=== PATIENT | female | born 1970 | race Caucasian/White ===

== ENCOUNTER 2021-06-09 15:42 | Emergency (ER) | payer OTHER, SELFPAY ==
[2021-06-09 15:53] VITALS: BP 153/84; PULSE 100; RESP 18; TEMP 37.4; O2SAT 97
--- NOTE | 2021-06-09 16:25 | ED.SKABFB ---
HPI - Skin/Abscess/Foreign Bdy General Chief complaint: Skin/Abscess/Foreign Body Stated complaint: Facial Swelling Source: patient and RN notes reviewed Mode of arrival: ambulatory History of Present Illness HPI narrative: 51 y/o female left face swelling worsening x3 days, went to hospital yesterday, stating facial swelling was not as bad. she was dc with ibuprofen with dx lymphadenopathy. Denies vision changes, ear pain, sore throat, neck pain fever/chills. States she is not in pain, just has facial swelling and the cheek feels tight. Related Data Home Medications Medication Instructions Recorded Confirmed celecoxib 200 mg PO BID 06/09/21 06/09/21 fluoxetine 20 mg PO DAILY 06/09/21 06/09/21 hydrocodone-acetaminophen 7.5 - 325 tablet PO PRN PRN 06/09/21 06/09/21 Allergies Allergy/AdvReac Type Severity Reaction Status Date / Time Penicillins AdvReac Unknown Nausea Verified 06/09/21 16:09 codeine AdvReac Nausea Verified 06/09/21 16:09 Review of Systems Review of Systems: All systems reviewed & are unremarkable except as noted in HPI and below [facility] Family History Family History (Updated 11/15/11 @ 10:23 by DOCTOR UNKNOWN) Other Diabetes mellitus Hypertension Social History Social History Alcohol intake: current Exam Narrative: GENERAL: Ill-appearing no acute distress. HEAD: Normocephalic, atraumatic. EYES: EOMI. No redness or drainage. Conjunctivae normal. ENT: Poor dentition, multiple caries and broken teeth. Mucous membranes pink and moist. Nares clear. No rhinorrhea. TMs normal bilaterally. Throat normal. Uvula midline. NECK: Normal AROM. Supple. Anterior cervical lymphadenopathy. CHEST: No respiratory distress. Clear to auscultation. HEART: Regular rate and rhythm. No murmur appreciated. Normal peripheral pulses. ABDOMEN: Soft, nontender, nondistended MUSCULOSKELETAL: No bony tenderness. EXTREMITIES: Normal range of motion. No edema. SKIN: Warm, dry; left periorbital edema/erythema/warmth to mid left cheek NEURO: No focal deficits. Alert and oriented x3. Gait steady. PSYCH: Normal affect. No signs of depression or anxiety. Course Course Emergency Course: Solumedrol IM given DC with doxy and steroid pack. pt will f/u with pcp and dentist, will monitor for worsening sx Level of Care: Express Care Visit Vital Signs Vital signs: Vital Signs Temperature 99.4 F 06/09/21 15:53 Pulse Rate 100 06/09/21 15:53 Respiratory Rate 18 06/09/21 15:53 Blood Pressure 153/84 H 06/09/21 15:53 Pulse Oximetry 97 06/09/21 15:53 Temperature 99.4 F 06/09/21 15:53 Pulse Rate 100 06/09/21 15:53 Respiratory Rate 18 06/09/21 15:53 Blood Pressure 153/84 H 06/09/21 15:53 Pulse Oximetry 97 06/09/21 15:53 MDM - Skin/Abscess/Foreign Bdy Differential Diagnosis Differential diagnosis: Likely abscess of skin or subcutaneous tissue, urticaria and cellulitis Discharge Plan Discharge Clinical Impression: Cellulitis Patient Disposition: Home, Self-Care Condition: Stable Instructions: Antibiotic Form, Cellulitis (ED) Additional Instructions: Take antibiotics and steroid as directed Tylenol 1000mg every 8 hours. No ibuprofen while taking steroid. cool compresses to site at least 3 times a day watch for lip/tongue swelling or trouble breathing - call 911 with any worsening symptoms Prescriptions: New doxycycline hyclate 100 mg tablet 100 mg PO BID 10 Days Qty: 20 RF: 0 methylprednisolone [Medrol (Yasir)] 4 mg tablets,dose pack See Rx Instructions .ROUTE .COMPLEX Qty: 21 RF: 0 No Action celecoxib 200 mg capsule 200 mg PO BID RF: 0 hydrocodone-acetaminophen 7.5-325 mg tablet 7.5 - 325 tablet PO PRN PRN (Reason: Pain) RF: 0 fluoxetine 20 mg capsule 20 mg PO DAILY RF: 0 Follow-up/Referrals: Eric,Ac Griggs MD [Primary Care Provider] - Stand Alone Forms: Work/School Re
[2021-06-09] MEDS: methylPREDNISolone ACETATE 80 MG/ML VIAL IM (16:41)
== END 2021-06-09 17:05 | disposition home or self-care (01) ==
PROVIDERS: Emergency Provider Nurse Practitioner Family; PCP Family Medicine
DX: L03.211 Cellulitis of face (principal)
CPT/HCPCS: 96372; 99203; G0463; J1040

== ENCOUNTER 2022-05-09 17:47 | Emergency (ER) | payer OTHER, SELFPAY ==
[2022-05-09 17:53] VITALS: BP 131/81; PULSE 83; RESP 18; TEMP 37.1; O2SAT 99
== END 2022-05-09 18:50 | disposition left against medical advice (07) ==
PROVIDERS: Emergency Provider Nurse Practitioner Family; PCP Family Medicine
DX: Z53.21 Procedure and treatment not carried out due to patient leaving prior to being seen by health care provider (principal)
CPT/HCPCS: 99199

== ENCOUNTER 2022-09-25 09:19 | Emergency (ER) | payer OTHER, SELFPAY ==
[2022-09-25 09:28] VITALS: BP 134/69; PULSE 62; RESP 20; TEMP 37.1; O2SAT 100
--- NOTE | 2022-09-25 10:06 | ED.DENTAL ---
HPI - Dental/Oral General Chief complaint: Dental/Oral Stated complaint: Toothache Source: patient and RN notes reviewed History of Present Illness HPI Narrative: 52-year-old female presents to urgent care with complaints of left lower dental pain. Patient states that 1 of the last 3 days. Patient states she has history of bad teeth. Denies any fevers, chills, vomiting, chest pain or shortness of breath. Patient does not have a dentist. Patient has been taking her Suboxone which helped with her pain. Some parts of this dictation were generated by voice recognition software and may contain typographical and/or grammatical inaccuracies. Related Data Home Medications Medication Instructions Recorded Confirmed celecoxib 200 mg capsule 200 mg PO BID 06/09/21 09/25/22 buprenorphine 12 mg-naloxone 3 mg 1 film buccal BID 05/09/22 09/25/22 sublingual film Allergies Allergy/AdvReac Type Severity Reaction Status Date / Time Penicillins AdvReac Unknown Nausea Verified 09/25/22 09:48 codeine AdvReac Nausea Verified 09/25/22 09:48 Review of Systems Review of Systems: Pertinent positives and pertinent negatives per HPI. [facility] Family History Family History (Updated 11/15/11 @ 10:23 by DOCTOR UNKNOWN) Other Diabetes mellitus Hypertension Social History Social History Alcohol intake: current Comments At the time of my signature, I reviewed and agree with the nursing past medical, surgical, social, and family history. There is no relevant family history pertinent to the patient complaint. Exam Narrative: GENERAL: This is a well-nourished, well-developed patient, in no apparent distress. HEAD: normocephalic, atraumatic. EYES:Sclera clear/white. Vision is grossly intact. EARS: External ears normal, auditory canals clear and without drainage. Hearing grossly intact. MOUTH: Tooth #20 Noted to be missing it with adjacent gum swelling. NOSE: External nose normal with no obvious nasal discharge, nares without redness, no rhinorrhea. THROAT: Mucous membranes moist, posterior pharynx clear. NECK: Neck supple, non-tender without lymphadenopathy, masses or thyromegaly. CARDIOVASCULAR: Regular rate RESPIRATORY: No distress GASTROINTESTINAL: Abdomen soft, non-tender, nondistended. Bowel sounds are active. No hepato-splenomegaly, or palpable masses. No guarding. SKIN: warm, intact with no suspicious lesions or rash, good texture and turgor. NEURO: awake, alert, and oriented to person, place and time. There were no obvious focal neurologic abnormalities. Course Course Level of Care: Express Care Visit Vital Signs Vital signs: Vital Signs Temperature 98.8 F 09/25/22 09:28 Pulse Rate 62 09/25/22 09:28 Respiratory Rate 20 09/25/22 09:28 Blood Pressure 134/69 09/25/22 09:28 Pulse Oximetry 100 09/25/22 09:28 Oxygen Delivery Room Air 09/25/22 09:28 Temperature 98.8 F 09/25/22 09:28 Pulse Rate 62 09/25/22 09:28 Respiratory Rate 20 09/25/22 09:28 Blood Pressure 134/69 09/25/22 09:28 Pulse Oximetry 100 09/25/22 09:28 Oxygen Delivery Room Air 09/25/22 09:28 Reviewed MDM - Dental/Oral MDM Narrative Medical decision making narrative: May call Chong @ [address] [address] hrs: Mon-Fri 8:30-5:00 Sat 8-noon [facility] [phone] PETRA Simmons Differential Diagnosis Differential diagnosis: Likely dental caries, toothache and dental abscess Critical Care Time Critical Care Time Critical Care Time: No Discharge Plan Discharge Clinical Impression: Dental abscess Patient Disposition: Home, Self-Care Condition: Stable Instructions: Antibiotic Form, Dental Abscess (ED) Additional Instructions: May call Chong @ [address] [id number] hrs:
== END 2022-09-25 10:13 | disposition home or self-care (01) ==
PROVIDERS: Emergency Provider Nurse Practitioner Family; PCP Family Medicine
DX: K04.7 Periapical abscess without sinus (principal); Z90.711 Acquired absence of uterus with remaining cervical stump
CPT/HCPCS: 99213; G0463

== ENCOUNTER 2025-04-24 17:49 | Emergency (ER) | payer OTHER, SELFPAY ==
--- OUTSIDE RECORDS SUMMARY | 2025-04-24 17:51 | XMS_ITS | Encounter Summary ---
Author Organization [facility] Address [address] [place] [address] Phone Care Team Providers Care Riveting Machine Operator Name Role Phone Ac Reyes MD Primary Care Provider [phone] Reason for Visit * Reason Comments Medication Refill Encounter Details Date Type Department Care Team (Late st Contact Info) Description 07/26/2021 Refill [facility] - Family Medicine [facility] [address] [place] [address] Ac Reyes MD [address] [place] [address] Medication Refill Social History Tobacco Use Types Packs/Day Years Used Date Smoking Tobacco: Former Cigarettes 0.5 Q uit: 04/21/2020 Smokeless Tobacco: Never Alcohol Use Standard Drinks/Week Comments No 0 (1 standard drink = 0.6 oz pur e alcohol) Comments No Sex and Gender Information Value Date Recorded Sex Assigned at Not on file Legal Sex Female 9:27 PM CDT Gender Identity Not on file Sexual Orientation Not on file documented as of this encounter Miscellaneous Notes * Telephone Encounter - Aide Bolanos RN - 07/26/2021 5:16 PM CST Medication failed the protocol, provider to review and approve the medication order if appropriate. Requested Prescriptions Pending Prescriptions Disp Refills FLUoxetine (PROzac) 20 MG Capsule [Pharmacy Med Name: FLUOXETINE 20MG CAPSULES] 90 Capsule 0 Sig: Take 1 Capsule by mouth daily. SSRI (6 Month Refill Only) Protocol Failed - 07/26/2021 3:10 PM Failed - Patient has established therapy with SSRI for at least 6 months Passed - Visit with relevant provider in past 6 months or upcoming 90 days Recent Visits Date Type Provider Dept 06/24/21 Office Visit Ac Reyes MD [facility] 05/19/21 Office Visit Ac Reyes MD [facility] 04/21/21 Office Visit cA Reyes MD [facility] Showing recent visits within past 182 days and meeting all other requirements Future Appointments Date Type Provider Dept 09/22/21 Appointment Ac Reyes MD [facility] Showing future appointments within next 90 days and meeting all other requirements Passed - Has an encounter in the past 6 months with a depression, anxiety, adjustment disorder, OCD, or PTSD 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
--- OUTSIDE RECORDS SUMMARY | 2025-04-24 17:51 | XMS_ITS | Clinical Summary ---
Author Organization [facility] Address [address] [place] [address] Phone Care Team Providers Care Logistician Name Role Phone Ac Reyes MD Primary Care Provider [phone] Allergies Active Allergy Reactions Criticality Noted Date Comments Codeine Nausea 02/26/2016 Medications Elastic Bandages & Supports (Elbow Brace) MiscIndications:L ateral epicondylitis of left elbow Use as directed 1 Each 1 Active Additional Information Patient not taking.Reported on 09/22/2022 celecoxib (CeleBREX) 200 MG CapsuleIndication s:Bilateral foot pain Take 1 Capsule by mouth 2 times daily. 180 Capsule 3 2 Active triamcinolone (KENALOG) 0.1 % CreamIndications: Eczema, unspecified type Apply to rash on the right ear tid. 45 g 1 2 Active ibuprofen (IBU) 600 MG Tablet Take 1 Tablet by mouth every 6 hours as needed for Moderate or more severe pain for up to 30 doses. 30 Tablet 5 Active Active Problems Problem Noted Date Diagnosed Date Plantar fasciitis, bilateral 2021 Cigarette smoker 04/23/2018 Degenerative cervical spinal stenosis 04/23/2018 History of endometriosis 04/23/2018 Status post partial hysterectomy 04/23/2018 Screening for breast cancer 07/20/2017 Current severe episode of ma roc depressive disorder without psychotic features without prior episode 07/20/2017 Neck pain 03/29/2017 Physical exam, annual (Adult) 01/30/2017 Tobacco abuse 01/30/2017 Chronic midline thoracic back pain 01/30/2017 Hematochezia 01/30/2017 Resolved Problems Problem Noted Date Diagnosed Date Resolved Date Acute non-recurrent maxillary sinusitis 07/20/2017 2021 Rash 02/28/2017 2021 Immunizations Immunization Administration Dates Next Due TDAP Vaccine 08/12/2015 Family History Medical History Relation Name Comments Anxiety disorder Daughter 1 Anxiety disorder Daughter 2 Coronary Artery Disease Father Other-comment Father pneumonia Stroke Father No Known Problems Maternal Grandfather No Known Problems Maternal Grandmother Heart Disease Mother Hypertension Mother Other-comment Mother pneumonia/COVI D No Known Problems Paternal Grandfather No Known Problems Paternal Grandmother Relation Name Status Comments Brother Alive Daughter 1 Alive Daughter 2 Alive Father Maternal Grandfather Maternal Grandmother Mother Paternal Grandfather Paternal Grandmother Social History Tobacco Use Types Packs/Day Years Used Date Smoking Tobacco: Former Cigarettes 0.5 38.5 0 10/18/1981 - 04/21/2020 Smokeless Tobacco: Never Tobacco Cessation:Counseling Given: Yes Alcohol Use Standard Drinks/Week Comments No 0 (1 standard drink = 0.6 oz pur e alcohol) PHQ-2 Answer Date Recorded Total Score - Questions 1-9 0 01/2022 Sexually Active Control Partners Comments Yes Male Comments No Sex and Gender Information Value Date Recorded Sex Assigned at Not on file Legal Sex Female 9:27 PM CDT Gender Identity Not on file Sexual Orientation Not on file Last Filed Vital Signs Vital Sign Reading Time Taken Comments Blood Pressure 169/84 10/26/2024 12:15 PM CDT Pulse 75 10/26/2024 12:15 PM CDT Temperature 36.4 C (97.6 F) 10/26/2024 10:55 AM CDT Respiratory Rate 17 10/26/2024 12:15 PM CDT Oxygen Saturation 99% 10/26/2024 12:15 PM CDT Inhaled Oxygen Concentration - - Weight 87.5 kg (193 lb) 10/26/2024 10:55 AM CDT Height 162.6 cm (5' 4) 10/26/2024 10:55 AM CDT Body Mass Index 33.13 10/26/2024 10:55 AM CDT Plan of Treatment Health Maintenance Due Date Last Done Comments Hepatitis C Virus (HCV) Screening 1969 Mammogram 1969 Varicella Immunization (1 of 2 - 13+ 2-dose series) 1982 Hepatitis B Immunization (1 of 3 - 19+ 3-dose series) 1988 Cologuard 2014 Colonoscopy 2014 Colorectal Cancer Screening 2014 Immunochemical Fecal Occult Blood 2014 Pneumococcal Immunization (5 0+ years) (1 of 1 - PCV) 2019 Zoster Immunization (1 of 2) 2019 Influenza Immunization (#1) 2025 SARS-COV-2 Immunization (3 - season) 2025 07/16/2021, 06/25/2021 Td Immunization Every 10 Yea rs (Adults With 1 Tdap) 08/11/2025 08/12/2015 Respiratory Syncytial Virus (RSV) Immunization (Adult) (1 - 1-dose 75+ series) 2044 Human Papillomavirus (HPV) Immunization Aged Out No longer eligible b ased on patient's age to complete this topic Meningococcal Immunization (ACWY) Aged Out No longer eligible b ased on patient's age to complete this topic Rotavirus Immunization Aged Out No lo nger eligible based on patient's age to complete this topic Insurance [address] [address] Care Teams Logistician Relationship Specialty Start Date End Date Ac Reyes MD PCP - General Family Medicine 04/21/21
--- OUTSIDE RECORDS SUMMARY | 2025-04-24 17:51 | XMS_ITS | Data Portability ---
Author Organization [facility] ROSAURAKarina Address [address] [place] [address] Care Team Providers Care Aging Room Hand Name Role Phone EMIL JURADO Primary Care Provider [phone] Assessment No assessment recorded. Plan of Treatment Reminders Order Date Submit Date Provider Last Modified By Organization Details Last Modified Time Details Appointments None recorde d. Lab unliste d lab - complia nce drug analysi s, ur 2018 019 bbertoglioma [facility], [address] [place] [address], [address], [place], [address], 9 12:36:11 CBC 2018 019 OBIE [facility], [address] [place] [address], [address], [place], [address], 9 10:09:56 CMP, serum or plasma 2018 019 OBIE [facility], [address] [place] [address], [address], [place], [address], 9 10:09:56 lipid panel, serum 2018 019 ARMSTRONG [facility], [address] [place] [address], [address], [place], [address], 9 10:09:57 Referral podiatr ist referra l 2019 020 adele Armijo, [address] [place], [address], 1 17:10:01 podiatr ist referra l 2018 019 adele Den Mele, [address] [facility] [place], [address], 9 10:17:49 Procedures None recorde d. Surgeries None recorde d. Imaging None recorde d. Medication Orders diclofe nac sodium 75 mg tablet, delayed release 2019 020 INTERFACE [facility] #[id number], [address], [place], [place], [id number], 0 15:51:11 tramado l 50 mg tablet 2019 020 [facility] #80267, [address], [place], [place], [id number], 1 17:24:32 tramado l 50 mg tablet 2018 [address] [facility], [address], [place], [place], [id number], 1 17:24:32 gabapen tin 300 mg capsule 2018 019 [facility] #94955, [address], [place], [place], [id number], 9 23:00:51 Lyrica 75 mg capsule 2018 019 [email or web address] #11698, [address], [place], [place], [id number], 0 15:19:08 tramado l 50 mg tablet 2018 019 [facility], [address], [place], [place], [id number], 1 17:24:32 fluoxet ine 20 mg capsule 2018 019 INTERFACE [facility] #59212, [address], [place], [place], [id number], 9 11:36:07 Patient TargetsNo targets recorded. Patient Instructions Encounter Date Encounter Id Patient Instructions Last Modified By Organization Details Last Modified Time 07/09/2018 [id number] fu in 2 weeks fo r prozac follow jnanney Not available 07/09/2018 11:36:37 08/06/2018 [id number] plantar fasciitis: care instructions jnanney Not available 08/06/2018 15:12:36 plantar fasciitis: exercises jnanney Not available 08/06/2018 15:12:36 upper respirator y infection (cold): care instructions jnanney Not available 08/06/2018 15:12:17 cont current med s use mucinex products if cold comes back jnanney Not available 08/06/2018 15:11:57 03/27/2019 [id number] plantar fasciitis: care instructions jnanney Not available 03/27/2019 15:34:49 plantar fasciitis: exercises jnanney Not available 03/27/2019 15:34:49 05/27/2019 [id number] she says that there might be some norco in there from an old script because she ran out of tramadol...also she has been using gabapentin not lyrica jnanney Not available 05/27/2019 11:50:19 Reason for Referral Associate Account Manager Referral for Plan tar fasciitis podiatry Referring Physician: [facility], Encounter Date: 03/27/2019 Associate Account Manager Referral for Bila teral foot joint pain pain in both feet Referring Physician: [facility], Encounter Date: 04/26/2020 Results Created Date Observation Date Name Description Value Unit Range Abnormal Flag Note LastModifiedBy Organization Detail LastModifiedTime 03/27/20 19 03/29/2019 CMP, serum or plasm a glucose 160 mg/dL 65-99 above high normal Speci men recei meenu in conta ct with cells . No visib le hemol ysis prese nt. Howev er GLUC may be decre ased and K incre ased. Clini palma corre latio n indic ated. Not Available [facility] ([facility]) [address] [place], [address], 03/29/2019 10:09:56 03/27/2003/29/2019 CMP, serum or plasm a BUN 11 mg/dL 6-24 Not Available [facility] ([facility]) [address] [place], [address], 03/29/2019 10:09:56 03/27/2003/29/2019 CMP, serum or plasm a creatinine 0.67 mg/dL 0.57-1 .00 Not Available [facility] ([facility]) [address] [place], [address], 03/29/2019 10:09:56 03/27/2003/29/2019 CMP, serum or plasm a eGFR if nonafricn AM 104 mL/mi n/1.7 3 >59 Not Available [facility] ([facility]) [address] [place], [address], 03/29/2019 10:09:56 03/27/2003/29/2019 CMP, serum or plasm a eGFR if africn AM 119 mL/mi n/1.7 3 >59 Not Available [facility] ([facility]) [address] [place], [address], 03/29/2019 10:09:56 03/27/2003/29/2019 CMP, serum or plasm a BUN/creatini ne ratio 16 9-23 Not Available [facility] ([facility]) [address] [place], [address], 03/29/2019 10:09:56 03/27/2003/29/2019 CMP, serum or plasm a sodium 143 mmol/ L 134-14 4 Not Available [facility] ([facility]) [address] [facility], [place], [address], 03/29/2019 10:09:56 03/27/2003/29/2019 CMP, serum or plasm a potassium 3.9 mmol/ L 3.5-5. 2 Speci men recei meenu in conta ct with cells . No visib le hemol ysis prese nt. Howev er GLUC may be decre ased and K incre ased. Clini palma corre latio n indic ated. Not Available [facility] ([facility]) [address] [facility], [place], [address], 03/29/2019 10:09:56 03/27/2003/29/2019 CMP, serum or plasm a chloride 106 mmol/ L 96-106 Not Available [facility] ([facility]) [address] [place], [address], 03/29/2019 10:09:56 03/27/2003/29/2019 CMP, serum or plasm a carbon dioxide, total 20 mmol/ L 20-29 Not Available [facility] ([facility]) [address] [place], [address], 03/29/2019 10:09:56 03/27/2003/29/2019 CMP, serum or plasm a calcium 9.1 mg/dL 8.7-10 .2 Not Available [facility] ([facility]) [address] [place], [address], 03/29/2019 10:09:56 03/27/2003/29/2019 CMP, serum or plasm a protein, total 6.2 g/dL 6.0-8. 5 Not Available [facility] ([facility]) [address] [place], [address], 03/29/2019 10:09:56 03/27/2003/29/2019 CMP, serum or plasm a albumin 4.3 g/dL 3.5-5. 5 Not Available [facility] ([facility]) [address] [facility] [place], [address], 03/29/2019 10:09:56 03/27/2003/29/2019 CMP, serum or plasm a globulin, total 1.9 g/dL 1.5-4. 5 Not Available [facility] ([facility]) [address] [facility] [place], [address], 03/29/2019 10:09:56 03/27/2003/29/2019 CMP, serum or plasm a A/G ratio 2.3 1.2-2. 2 above high normal Not Available [facility] ([facility]) [address] [facility] [place], [address], 03/29/2019 10:09:56 03/27/2003/29/2019 CMP, serum or plasm a bilirubin, total <0.2 mg/dL 0.0-1. 2 Not Available [facility] ([facility]) [address] [facility] [place], [address], 03/29/2019 10:09:56 03/27/2003/29/2019 CMP, serum or plasm a alkaline phosphatase 103 IU/L 39-117 Not Available [facility]) [address] [facility] [place], [address], 03/29/2019 10:09:56 03/27/2003/29/2019 CMP, serum or plasm a AST (SGOT) 13 IU/L 0-40 Not Available [facility] ([facility]) [address] [facility] [place], [address], 03/29/2019 10:09:56 03/27/2003/29/2019 CMP, serum or plasm a ALT (SGPT) 14 IU/L 0-32 Not Available [facility] ([facility]) [address] [place], [address], 03/29/2019 10:09:56 03/27/2003/29/2019 CBC WBC 6.7 x10e3 /uL 3.4-10 .8 Not Available [facility] ([facility]) [address] [facility] [place], [address], 03/29/2019 10:09:56 03/27/2003/29/2019 CBC RBC 5.24 x10e6 /uL 3.77-5 .28 Not Available [facility] ([facility]) [address] [facility] [place], [address], 03/29/2019 10:09:56 03/27/2003/29/2019 CBC hemoglobin 15.3 g/dL 11.1-1 5.9 Not Available [facility] ([facility]) [address] [facility] [place], [address], 03/29/2019 10:09:56 03/27/2003/29/2019 CBC hematocrit 45.3 % 34.0-4 6.6 Not Available [facility] ([facility]) [address] [facility] [place], [address], 03/29/2019 10:09:56 03/27/2003/29/2019 CBC MCV 87 fL 79-97 Not Available [facility] ([facility]) [address] [facility] [place], [address], 03/29/2019 10:09:56 03/27/2003/29/2019 CBC MCH 29.2 pg 26.6-3 3.0 Not Available [facility] ([facility]) [address] [facility] [place], [address], 03/29/2019 10:09:56 03/27/2003/29/2019 CBC MCHC 33.8 g/dL 31.5-3 5.7 Not Available [facility] ([facility]) [address] [facility] [place], [address], 03/29/2019 10:09:56 03/27/2003/29/2019 CBC RDW 14.0 % 12.3-1 5.4 Not Available [facility] ([facility]) [address] [place], [address], 03/29/2019 10:09:56 03/27/2003/29/2019 CBC platelets 191 x10e3 /uL 150-45 0 Not Available [facility] ([facility]) [address], [place], [address], 03/29/2019 10:09:56 03/27/2003/29/2019 CBC NRBC ASH CONVEYOR OPERATOR Not Available [facility] ([facility]) [address] [facility] [place], [address], 03/29/2019 10:09:56 03/27/2003/29/2019 lipid panel , serum cholesterol, total 201 mg/dL 100-19 9 above high normal Not Available [facility] ([facility]) [address] [facility] [place], [address], 03/29/2019 10:09:57 03/27/2003/29/2019 lipid panel , serum triglyceride s 321 mg/dL 0-149 above high normal Not Available [facility] ([facility]) [address] [facility] [place], [address], 03/29/2019 10:09:57 03/27/2003/29/2019 lipid panel , serum HDL cholesterol 29 mg/dL >39 below low normal Not Available [facility] ([facility]) [address] [facility] [place], [address], 03/29/2019 10:09:57 03/27/2003/29/2019 lipid panel , serum VLDL cholesterol palma 64 mg/dL 5-40 above high normal Not Available [facility] ([facility]) [address] [facility] [place], [address], 03/29/2019 10:09:57 03/27/20 19 03/29/2019 lipid panel , serum LDL cholesterol calc 108 mg/dL 0-99 above high normal Not Available [facility] ([facility]) [address] [facility], [place], [address], 03/29/2019 10:09:57 03/27/20 19 03/29/2019 lipid panel , serum comment: ASH CONVEYOR OPERATOR Not Available [facility] ([facility]) [address] [facility], [place], [address], 03/29/2019 10:09:57 03/27/20 19 03/29/2019 cardi ovasc ular asses sment panel , serum interpretati on Note Suppl emalexus al dejuan hernandez is avail able. Not Available [facility] ([facility]) [address] [facility], [place], [address], 03/29/2019 10:09:57 03/27/20 19 03/29/2019 cardi ovasc ular asses sment panel , serum pdf image . Not Available [facility] ([facility]) [address] [facility], [place], [address], 03/29/2019 10:09:57 05/27/20 19 06/01/2019 drug scree n, urine summary report (summary) FINAL ===== ===== ===== ===== ===== ===== ===== ===== ===== ===== ===== ===== ===== === TOXAS SURE COMP DRUG BOOGIE SIS,U R ===== ===== ===== ===== ===== ===== ===== ===== ===== ===== ===== ===== ===== === Test Resul t Flag Units Drug Prese nt and Decla red for Presc ripti on Verif icati on Trama dol >4132 EXPEC ABRAHAM ng/mg creat O-Addison methy ltram adol >4132 EXPEC ABRAHAM ng/mg creat N-Addison methy ltram adol 3726 EXPEC ABRAHAM ng/mg creat Sourc e of trama dol is a presc ripti on medic ation . O-addison methy ltram adol and N-addison methy ltram adol are expec abraham metab olite s of trama dol. Gabap entin PRESE NT EXPEC ABRAHAM Fluox etine PRESE NT EXPEC ABRAHAM Norfl uoxet ine PRESE NT EXPEC ABRAHAM Norfl uoxet ine is an expec abraham metab olite of fluox etine . Drug Prese nt not Decla red for Presc ripti on Verif icati on Worley codon e 775 UNEXP ECTED ng/mg creat Worley morph one 134 UNEXP ECTED ng/mg creat Dihyd rocod eine 233 UNEXP ECTED ng/mg creat Norhy droco done 1004 UNEXP ECTED ng/mg creat Sourc es of hydro codon e inclu de sched uled presc ripti on medic ation s. Worley morph one, dihyd rocod eine and norhy droco done are expec abraham metab olite s of hydro codon e. Worley morph one and dihyd rocod eine are also avail able as sched uled presc ripti on medic ation s. Bupre norph ine 5 UNEXP ECTED ng/mg creat Norbu preno rphin e 21 UNEXP ECTED ng/mg creat Sourc e of bupre norph ine is a sched uled presc ripti on medic ation . Norbu preno rphin e is an expec abraham metab olite of bupre norph ine. Aceta minop hen PRESE NT UNEXP ECTED Drug Absen t but Decla red for Presc ripti on Verif icati on Prega balin Not Detec abraham UNEXP ECTED Ibupr ofen Not Detec abraham UNEXP ECTED Ibupr ofen, as indic ated in the decla red medic ation list, is not alway s detec abraham even when used as direc abraham. ===== ===== ===== ===== ===== ===== ===== ===== ===== ===== ===== ===== ===== === Test Resul t Flag Units Ref Range Creat inine 121 mg/dL >=20 ===== ===== ===== ===== ===== ===== ===== ===== ===== ===== ===== ===== ===== === Decla red Medic ation s: The jez ing and inter preta tion on this repor t are based on the follo wing decla red medic ation s. Unexp ected resul ts may arise from inacc uraci es in the decla red medic ation s. Not e: The testi ng scope of this panel inclu addison these medic ation s: Fluox etine Gabap entin Prega balin Trama dol Not e: The testi ng scope of this panel does not inclu de small to moder ate amoun ts of these repor abraham medic ation s: Ibupr ofen Not e: The testi ng scope of this panel does not inclu de follo wing repor abraham medic ation s: Triam cinol one aceto nide ===== ===== ===== ===== ===== ===== ===== ===== ===== ===== ===== ===== ===== === For clini palma consu ltati on, pleas e call . ===== ===== ===== ===== ===== ===== ===== ===== ===== ===== ===== ===== ===== === Not Available [facility] [address] [place] [address] D, [place], [address], 06/01/2019 11:07:21 05/27/20 19 06/01/2019 drug scree n, urine pdf . Not Available [facility] [address] [place] [address] [address], [place], [address], 06/01/2019 11:07:21 07/21/19 19 07/20/2018 XR, foot, 3 or more view No observ ation record ed. [email or web address] Not Available 07/22 08:52:02 12/12/19 19 12/06/2018 XR, foot, 3 or more view No observ ation record ed. [email or web address] Not Available 2018 11:21:20 Result Notes None recorded. Problems Name Problem SNOMED Code Status Onset Date Resolution Date Notes Provider Name and Address Organization Details Recorded Time History of endometrios is 7552275119696 4107 Active 2017 Emil Jurado PA-C Attn: Aida kearney,[address] [place], [address], [facility] 8 16:37:19 Partial hysterectom y Active 2017 Emil Jurado PA-C Attn: Aida kearney,[address] [place], [address], [facility] 8 16:37:30 Degenerativ e cervical spinal stenosis 116345367 Active 2017 Emil Jurado PA-C Attn: Aida kearney,[address] [place], [address], [facility] 8 16:38:07 Cigarette smoker 83965973 Active 2017 Emil Jurado PA-C Attn: Aida kearney,[address] [place], [address], [place] [facility] 8 16:38:26 Problem Notes None recorded. Procedures Surgical History Date Name Laterality Status Provider Name and Address Organization Details Recorded Time 4 section completed Pratibha Lugo MA [facility] 08/06/2018 14:30:16 0 section completed Pratibha Lugo MA [place] [facility] 08/06/2018 14:30:11 Imaging Results None recorded. Procedure Notes None recorded. Medical Equipment None Reported. Allergies Allergen ID Allergen Name Allergen Category Reaction Reaction Severity Criticality Documentation Date Start Date Code Code System Note Provider Name and Address Organization Details Recorded Time 169856 codeine medicatio n Not available Not available Not available 08/06/2018 2670 RxNorm JOHN Fraser, [place] - [facility] 9 14:28:47 Medications Name Sig Start Date Stop Date Status Note LastModified by Organization Details LastModified Time fluconazole 150 mg tablet 04/09 completed Not Available Not Available Not Available hydrocodone 5 mg-acetamino phen 325 mg tablet 08/06 completed Not Available Not Available Not Available sulfamethoxa zole 800 mg-trimethop rim 160 mg tablet 05/03 completed Not Available Not Available Not Available tramadol 50 mg tablet TAKE 1 TABLET BY MOUTH EVERY 8 HOURS NEEDED 09/24 completed Not Available Not Available Not Available triamcinolon e acetonide 0.1 % topical cream 04/09 completed Not Available Not Available Not Available citalopram 20 mg tablet 04/09 completed Not Available Not Available Not Available gabapentin 300 mg capsule TAKE 1 CAPSULE BY MOUTH THREE TIMES DAILY active Not Available Not Available No t Available diclofenac sodium 75 mg tablet,delay ed release Take 1 tablet twice a day by oral route for 30 days. 2019 active Not Available Not Available Not Avai lable triamcinolon e acetonide 0.1 % lotion active Not Available Not Available Not Available ibuprofen 600 mg tablet Take 1 tablet 3 times a day by oral route for 30 days. 04/26 completed Not Available Not Available Not Available polyethylene glycol 3350 17 gram/dose oral powder 04/09 completed Not Available Not Available Not Available fluoxetine 20 mg capsule TAKE ONE CAPSULE BY MOUTH EVERY DAY 2020 active Not Available Not Available Not Avai lable amoxicillin 875 mg-potassium clavulanate 125 mg tablet 04/09 completed Not Available Not Available Not Available azithromycin 500 mg tablet Take 1 tablet every day by oral route for 3 days. 06/07 completed Not Available Not Available Not Available escitalopram 10 mg tablet 04/09 completed Not Available Not Available Not Available nitrofuranto in monohydrate/ macrocrystal s 100 mg capsule 04/09 completed Not Available Not Available Not Available pregabalin 75 mg capsule TAKE 1 CAPSULE BY MOUTH TWICE DAILY 04/26 completed Not Available Not Available Not Available Vitals Date Recorded Body height Body mass index (BMI) Body weight Oxygen saturation Heart rate Systolic And Diastolic Provider Name and Address Organization Details Last Updated DateTime 9 162.56 cm 32.8 kg/m2 13922.1 4 g 98 % 74 /min 130/92 mm[Hg] Odilia Collins MA [facility] 9 11:00:59 Date Recorded Body height Body mass index (BMI) Body weight Body temperature Oxygen saturation Heart rate Systolic And Diastolic Provider Name and Address Organization Details Last Updated DateTime 9 162.56 cm 33 kg/m2 23030.7 4 g 98.8 [degF] 95 % 71 /min 160/92 mm[Hg] Pratibha Lugo MA [facility] 9 14:32:10 Date Recorded Body height Body mass index (BMI) Body weight Oxygen saturation Heart rate Systolic And Diastolic Provider Name and Address Organization Details Last Updated DateTime 9 162.56 cm 33.7 kg/m2 05988.9 g 97 % 75 /min 140/84 mm[Hg] Odilia Collins MA [facility] 9 14:50:51 Date Recorded Body height Provider Name an d Address Organization Details Last Updated DateTime 04/26/2020 162.56 cm Elisha Whitfield [facility] 04/26/2020 15:18:40 Date Recorded Body height Body mass index (BMI) Body weight Oxygen saturation Heart rate Systolic And Diastolic Provider Name and Address Organization Details Last Updated DateTime 9 162.56 cm 33.2 kg/m2 28831.7 3 g 96 % 81 /min 142/94 mm[Hg] Odilia Collins MA [facility] 9 11:16:13 Social History Question Answer Notes LastModified by Organizat ion Details LastModified Time Tobacco Smoking Status Current Every Day Smoker Odilia Collins MA null, [facility] 04/09/2018 16:13:41 What Is Your Level Of Caffeine Consumption? Moderate Information not available 08/06/2018 What Type Of Diet Are You Following? REGULAR [email or web address] Information not available 04/26/2020 Which Illicit Or Recreational Drugs Have You Used? Denies [email or web address] Information not available 04/26/2020 What Was The Date Of Your Most Recent Tobacco Screening? 04/26/2020 Information not available 04/26/2020 How Much Tobacco Do You Smoke? 0.25 PPD 2-3 Cigs Daily [email or web address] Information not available 04/26/2020 General Stress Level Medium [email or web address] Information not available 04/26/2020 Has Tobacco Cessation Counseling Been Provided? Yes Information not available 08/06/2018 On What Date Was Tobacco Cessation Counseling Provided? 04/26/2020 Information not available 04/26/2020 How Many Years Have You Smoked Tobacco? 29 Information not available 08/06/2018 Sex: Unknown Functional Status Question Answer Note LastModified by Organizat ion Details LastModified Time What is your level of alcohol consumption? None Information not available 08/06/2018 Do you or have you ever used smokeless tobacco? Never used smokeless tobacco [email or web address] Information not available 04/26/2020 Are you currently employed? Yes [email or web address] Information not available 04/26/2020 Do you or have you ever used e-cigarettes or vape? Never used electronic cigarettes [email or web address] Information not available 04/26/2020 What is your exercise level? None [email or web address] Information not available 04/26/2020 Mental Status None recorded. Family History Relationship Description Onset Age of this Age Resolved Age Notes LastModified by Organization Details LastModified Time Father Diabetes mellitus [email or web address] Not available 11/2017 16:14:01 Mother Heart disease [email or web address] Not available 11/2017 16:14:08 Medical History Condition Response Coronary Artery Disease N High Blood Pressure Y Atrial Fibrillation N Kidney or Bladder Problems N Thyroid Problems N GI Problems N Depression N COPD N Blood Clots N Skin Problems Y Eating Disorder N Anemia N Heart Attack ([place]) N Anxiety Disorder N Diabetes N Muscle, Joint, or Bone Problems Y Seizures/Epilepsy N Acid Reflux (GERD) N Cancer N Stroke N Asthma N Allergies Y High Cholesterol N Hepatitis N Liver Disease N Headaches N Heart Failure N Osteoporosis N Gynecological HistoryNo gynecological history recorded. Obstetrics History GPAL:G 0 P 0 0 0 0 Past Encounters Encounter ID Performer Location Encounter Start Date Encounter Closed Date Diagnosis/Indication Diagnosis SNOMED-CT Code Diagnosis ICD10 Code Diagnosis IMO Codes Diagnosis Note [id number] Emil Jurado PA-C [facility] [address] [place] [address] 04/09/2018 15:51:08 04/09/2018 17:18:25 Lumbar radiculopathy 205301164 M54.16 Cervical radiculopathy 34458633 M54.12 [id number] Emil Jurado PA-C [facility] [address] [place] [address] 04/23/2018 15:37:23 04/23/2018 17:06:48 Blood in urine 72314108 R31.9 History of endometriosis 9858785674 3896378 Z87.42 History of hematuria 161 470243 Z87.448 Degenerati ve cervical spinal stenosis 504957131 M48.02 [id number] Emil Jurado PA-C [facility] [address] [place] [address] 05/03/2018 16:29:35 05/06/2018 15:40:43 Primary fibromyalgia syndrome 97835377 M79.7 Upper resp iratory infection 38355361 J06.9 [id number] Emil ALBINO Jurado [facility] [address] [place] [address] 07/09/2018 10:41:58 07/09/2018 11:51:00 Degenerative cervical spinal stenosis 412329191 M48.02 Chronic depression 94855 0009 F34.1 [id number] Emil Jurado PA-C [facility] [address] [place] [address] 08/06/2018 14:24:10 08/06/2018 15:29:47 Plantar fasciitis 898730903 M72.2 Lumbar radiculopathy 128 800509 M54.16 Upper resp iratory infection 86861557 J00 [id number] Emil Jurado PA-C [facility] [address] [place] [address] 03/27/2019 14:37:54 03/27/2019 16:47:54 Degenerative cervical spinal stenosis 133271878 M48.02 Primary fi bromyalgia syndrome 91518565 M79.7 Plantar fasciitis 505372 003 M72.2 Mixed hyperlipidemia 267 801218 E78.2 [id number] Emil Jurado PA-C [facility] [address] [place] [address] 05/27/2019 10:51:41 05/27/2019 12:41:02 Medication monitoring 835234425 Z51.81 Degenerati ve cervical spinal stenosis [id number] M48.02 Lumbar radiculopathy [id number] M54.16 [id number] Eyal Cook MD [facility] [address] [place] [address] 04/26/2020 09:32:12 04/26/2020 15:51:42 Bilateral foot joint pain [id number] M79.672 Lumbar radiculopathy [id number] M54.16 Health Concerns Section Related Observation LastModified by Organization Detai ls LastModified Time None Recorded Concern Status LastModified by Organization Details LastModified Time None Recorded Advance Directives Directive None Recorded Payers Insurance Date Sequence Insurance Name Policy Number Policy Perez Covered Member ID Perez Member ID Guarantor Name 04/24/2020 1 [facility] - DOS PRIOR TO 2020 (MEDICAID REPLACEMENT - HMO) Agustina Babin [id number] Agustina Babin Notes Date Note Type Note Provider Name and Address Organization Details Recorded Time 07/09/2018 text/html ROS as noted in the HPI follow up on buffy..also found out she has a heel spur. 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 describes depressive symptoms following deaths in family Emil Jurado PA-C Attn: [address]ing,[address] [place], [address], [facility] 07/09/2018 11:37:49 08/06/2018 text/html ROS as noted in the HPI was coughing and felt bad but feels better now. saw podiatry. treated for plantar fasciitis. prozac doing much better. Emil Jurado PA-C Attn: [address] [place], [address], [facility] 08/06/2018 15:16:43 03/27/2019 text/html ROS as noted in the HPI insurance denied her lyrica..also waking up from a sleep.. no lyrica for a few days..no stress no anxiety just wakes up.. Emil Jurado PA-C Attn: Accounting,[address] [facility], [place], [address], [facility] 03/27/2019 15:37:07 05/27/2019 text/html ROS as noted in the HPI hx of spinal stenosis and a bronchitis fro 1 month Emil Jurado PA-C Attn: Accounting,[address] [facility], [place], [address], [facility] 05/27/2019 11:51:32 04/26/2020 text/html ROS as noted in the HPI having pains in hands and feet...describes pain in the tops of her feet and bilateral carpal tunnel.. Emil Jurado PA-C Attn: Accounting,[address] [facility], [place], [address], [facility] 04/26/2020 15:51:40 OBGyn Episode No OBEpisode recorded.
[2025-04-24 17:55] VITALS: BP 141/76; PULSE 76; RESP 16; TEMP 37.4; O2SAT 98
--- NOTE | 2025-04-24 18:09 | ED.DENTAL ---
HPI - Dental/Oral General Chief complaint: Dental/Oral Stated complaint: teeth causing face swelling Time Seen by Provider: 04/24/25 18:05 Mode of arrival: ambulatory Limitations: no limitations History of Present Illness HPI Narrative: 54-year-old female presents with concern for right upper dental pain 2 days. Reports she has bad teeth and has had this before. She does not currently have a dentist. She has been taking leftover clindamycin without relief Complaint: tooth pain Related Data Home Medications ?Medication ?Instructions ?Recorded ?Confirmed ?Last Taken ?Type buprenorphine 12 mg-naloxone 3 mg 1 film buccal BID 05/09/22 09/25/22 Unknown History sublingual film Allergies Allergy/AdvReac Type Severity Reaction Status Date / Time Penicillins AdvReac Unknown Nausea Verified 04/24/25 18:03 codeine AdvReac Nausea Verified 04/24/25 18:03 Review of Systems Review of Systems: CONSTITUTIONAL: Denies malaise, chills, sweats, or fever. EYES: Denies visual changes ENT: Denies rhinorrhea, congestion, sinus pain, otalgia or sore throat. Reports right upper dental pain CARDIOVASCULAR: Denies chest pain, palpitations RESPIRATORY: Denies cough or dyspnea. SKIN: Denies rash or itching. MUSCULOSKELETAL: Denies myalgia. NEUROLOGIC: Denies numbness, weakness, or headache. All systems reviewed & are unremarkable except as noted in HPI and below PMFSH Family History Family History (Updated 11/15/11 @ 10:23 by DOCTOR UNKNOWN) Other Diabetes mellitus Hypertension Social History Social History Alcohol intake: current Comments At time of signature, agree with nursing past medical, surgical, social and family history. There is no relevant family history pertinent to the presenting complaint Exam Narrative: GENERAL: Well-appearing, well-nourished, and in no acute distress. HEAD: Normocephalic, atraumatic. EYES: PERRLA, sclera clear ENT: Nares clear, turbinates pink, no rhinorrhea or epistaxis. Mucous membranes moist. TM pearly dotson with sharp light reflex bilaterally; no tragal tenderness. Oropharynx without erythema or lesions. Tonsils not enlarged and without exudate. Missing teeth, broken teeth, caries NECK: Supple. No lymphadenopathy. CHEST: No respiratory distress. Speaks in full sentences. HEART: Regular rate and rhythm. SKIN: Warm, dry, no visible rash. NEURO: Alert and oriented x3. PSYCH: Normal mood and affect Course Course Emergency Course: Patient is aware of diagnosis, understands and agrees to treatment plan. Anticipatory guidance given. Patient agrees to follow-up as directed and is aware of reasons to seek care at the emergency department. Portions of this record may have been created with voice recognition software Level of Care: Express Care Visit Vital Signs Vital signs: Vital Signs Temperature 99.3 F 04/24/25 17:55 Pulse Rate 76 04/24/25 17:55 Respiratory Rate 16 04/24/25 17:55 Blood Pressure 141/76 H 04/24/25 17:55 Pulse Oximetry 98 04/24/25 17:55 Oxygen Delivery Room Air 04/24/25 17:55 Temperature 99.3 F 04/24/25 17:55 Pulse Rate 76 04/24/25 17:55 Respiratory Rate 16 04/24/25 17:55 Blood Pressure 141/76 H 04/24/25 17:55 Pulse Oximetry 98 04/24/25 17:55 Oxygen Delivery Room Air 04/24/25 17:55 Reviewed. MDM - Dental/Oral MDM Narrative Medical decision making narrative: I evaluated this in the [facility]. History is obtained from patient who is an independent historian and physical exam was performed.? Available medical records were reviewed. ? Exam findings and relevant testing show no acute concerns or changes; patient is non-toxic appearing and is in no distress. Patients pain and complaint coupled with physical findings are consistant with dentalgia. There are no focal signs of space occupying lesions that are compromising to the airway; no dysphagia, odynophagia, dysphonia, or dyspnea. No uvular deviation or soft palate edema. Patient is non-toxic appearing. The floor of the mouth is soft with no signs of Fransico's Angina; no induration below mandible, no neck pain. Patient is without trismus or drooling and able to swallow secretions. Patient is felt appropriate for discharge home with dental follow up. ? Differential diagnosis and treatment plan were discussed with the patient. Patient agrees with discussion and after shared medical decision making agrees with plan of care. All questions were answered to the patient's satisfaction. Patient is appropriate for outpatient treatment and follow-up. Differential Diagnosis Differential diagnosis: Likely gingival abscess, dental caries, toothache, dental abscess, fracture of tooth and aphthous ulcer Critical Care Time Critical Care Time Critical Care Time: No Discharge Plan Discharge Clinical Impression: Toothache Patient Disposition: Home Condition: Stable Instructions: Antibiotic Form, Toothache (ED) Additional Instructions: Take antibiotic as directed Avoid temperature extremes May apply heat or ice to the face Gentle brushing and flossing Take 2 extra strength Tylenol, 4 ibuprofen, 80 mg of caffeine at same time. You can do this every 6 hours. Do not do this for more than 2 - 3 days. You can substitute 25 mg Benadryl at nighttime for caffeine to help you sleep. Do this for no more than 3 days. Follow-up with the dentist as soon as possible - see the list provided Patient Language: Puerto [place]ican Prescriptions: New ibuprofen 800 mg tablet 800 mg PO Q6H PRN (Reason: pain) Qty: 30 0RF amoxicillin-pot clavulanate 875-125 mg tablet 1 tablet PO Q12H 10 Days Qty: 20 0RF No Action buprenorphine-naloxone 12-3 mg film 1 film buccal BID Follow-up/Referrals: PHYSICIAN,COUNSELOR AT [facility] [Primary Care Provider, Internal Medicine] Time of Disposition: 18:14
== END 2025-04-24 18:23 | disposition home or self-care (01) ==
PROVIDERS: Emergency Provider Nurse Practitioner
DX: K08.89 Other specified disorders of teeth and supporting structures (principal)
CPT/HCPCS: 99213; G0463